=== PATIENT | female | born 1960 | race Two or more races ===

== ENCOUNTER → 2017-10-22 | Outpatient (CLI) | payer MEDICARE, OTHER ==
[~2017-10-22] MED LIST: ARIP1TAB14 PO; ATOR20TA15 PO; BACL10TA PO; BENZ0.5T PO; BUSP15TA PO; CANA100T PO; CLON0.5T PO; DIVA500T3 PO; ENAL2.5T PO; FURO20TA PO; HUMU70IN SQ; LANTINJ SQ; NAPR500T2 PO; OXYC1TAB63 PO; ROPI0.25 PO; SERT-129 PO; SITA1TAB2 PO; TRAZ100T4 PO
--- NOTE | 2017-10-22 15:28 | RADRPT ---
EXAM DATE/TIME: 10/22/2017 14:00 [place] COMPARISON: No previous studies available for comparison. INDICATIONS : Tremors with memory loss. DOSE: 4.9 mCi Ioflupane Iodine-123 in 2.5 ml total volume MEDICATION(S): 130 mg Potasium Iodine PO one hour prior to injection SPECT IMAGIN.5hrs IMAGNG: SPECT/CT imaging with fusion was performed. RADIATION DOSE: 30.27 CTDIvol (mGy) MEDICAL HISTORY : Dementia. Diabetes mellitus type 2. SURGICAL HISTORY : Tubal ligation. Hysterectomy. Discectomy, cervical. ENCOUNTER: Sequela ACUITY: 7 - 11 months PAIN SCALE: 0/10 LOCATION: cranial TECHNIQUE: SPECT imaging of the brain was performed in sagittal, axial and coronal planes. Attenuation correctio n was performed with computed tomography and both the attenuation correction and non-attenuation latoya ected data sets were reviewed. FINDINGS: The study is mildly abnormal. Activity is is symmetrical in both caudate nuclei. There is diminishe d activity in the putamen worse on the right than the left. The diminished activity in the putamen u sually correlates with worse symptoms on the contralateral side. CONCLUSION: Abnormal as described above loss of activity the putamen, sparing the caudate worse o n the right than the left. Shai Gonzalez MD FACR on October 22, 2017 at 15:19 Board Certified Radiologist. This report was verified electronically.
== END ==
LOC: HRAD 08:50
DX: E53.8 Deficiency of other specified B group vitamins (principal); G21.19 Other drug induced secondary parkinsonism; F03.90 Unspecified dementia, unspecified severity, without behavioral disturbance, psychotic disturbance, mood disturbance, and anxiety; G20 Parkinson's disease; E07.9 Disorder of thyroid, unspecified
CPT/HCPCS: 78607; A9584